=== PATIENT | male | born 1985 | race Caucasian/White ===

== ENCOUNTER 2018-07-02 18:47 | Emergency (ER) | payer SELFPAY ==
--- NOTE | 2018-07-02 20:47 | C.PDOC ---
History Of Present Illness 32 y/o male brought in by ambulance for public intoxication. He admits to drinking a lot of Anastacia today. Per EMs, patient is acting aggressively and spitting at staff. On arrival to the ED, patient placed in 4 pt restraints for safety. No other complaints offered at this time. Time Seen by Provider: 07/02/18 19:05 Chief Complaint (Nursing): Substance Abuse History Per: Patient History/Exam Limitations: intoxication Onset/Duration Of Symptoms: Hrs Current Symptoms Are (Timing): Still Present Modifying Factor(s): Alcohol Associated Symptoms: denies: Suicidal Thoughts, Suicidal Plan Additional History Per: EMS Past Medical History Reviewed: Historical Data, Nursing Documentation, Vital Signs Vital Signs: Last Vital Signs Temp 97.4 F L 07/02/18 19:23 Pulse 78 07/02/18 19:23 Resp 18 07/02/18 19:23 BP 114/78 07/02/18 19:23 Pulse Ox 95 07/02/18 19:23 Family History: States: Unknown Family Hx - Social History Hx Alcohol Use: Yes Hx Substance Use: No (unknown) - Immunization History Hx Tetanus Toxoid Vaccination: No Hx Influenza Vaccination: No Hx Pneumococcal Vaccination: No Review Of Systems Review Of Systems: ROS cannot be obtained secondary to pt's inabilty to answer questions. Physical Exam - Physical Exam Appears: No Acute Distress, Other (Argumentative, Stuporous, Uncooperative with exam) Skin: Warm, Dry Head: Atraumatic, Normacephalic Eye(s): bilateral: Normal Inspection Oral Mucosa: Moist Neck: Normal ROM Chest: Symmetrical Respiratory: No Accessory Muscle Use, Other (No respiratory distress) Extremity: Bilateral: Atraumatic, Normal Color And Temperature, Other (moves all extremities) Pulses: Left Dorsalis Pedis: Normal, Right Dorsalis Pedis: Normal Neurological/Psych: Other (Awake, Alert, Vomiting, with alcohol-smelling vomitus) Gait: Unsteady ED Course And Treatment O2 Sat by Pulse Oximetry: 95 (RA) Pulse Ox Interpretation: Normal Reevaluation Time: 00:25 Reassessment Condition: Improved (stable gait- walking through the ED naked) Medical Decision Making Medical Decision Making: Plan: Patient placed on 1:1 observation due to risk of elopement. Plan is to monitor in the ED and discharge when clinically sober. Disposition Doctor Will See Patient In The: Office Counseled Patient/Family Regarding: Studies Performed, Diagnosis - Disposition Disposition: HOME/ ROUTINE Disposition Time: 00:25 Condition: GOOD Forms: [facility] (Cuban) - Clinical Impression Clinical Impression: Alcohol abuse - Scribe Statement The provider has reviewed the documentation as recorded by the Geri Nava Provider Attestation: All medical record entries made by the Geri were at my direction and personally dictated by me. I have reviewed the chart and agree that the record accurately reflects my personal performance of the history, physical exam, medi bri decision making, and the department course for this patient. I have also personally directed, reviewed, and agree with the discharge instructions and disposition.
[2018-07-02 21:47] VITALS: RESP 20
[2018-07-03 00:43] VITALS: BP 118/74; PULSE 89; TEMP 98; O2SAT 99
== END 2018-07-03 00:42 | disposition home or self-care (01) ==
LOC: C.ER 18:47
DX: F10.10 Alcohol abuse, uncomplicated (principal); Y90.9 Presence of alcohol in blood, level not specified